=== PATIENT | male | born 1965 | race Caucasian/White ===

== ENCOUNTER 2018-01-24 04:32 | Emergency (ER) | payer SELFPAY ==
[2018-01-24 04:34] VITALS: BP 157/107; PULSE 80; RESP 17; TEMP 36.4; O2SAT 96; BMI 24.3
--- NOTE | 2018-01-24 05:11 | ED.VIS.GEN ---
History of Present Illness Chief Complaint: Chest Pain Informant: Patient Onset: Hours - 12 Context: Gradual Onset Timing: Continuous Quality: tightness Location: substernal w/ radiation toward left shoulder blade. no other radiation. Current Severity: Moderate Maximum Severity: Moderate Worsened by: lying supine. nonpleuritic. Relieved by: sitting up somewhat. Associated Symptoms: none; no n/v, sweats, sob, palpitations, lightheadedness Narrative: Ongoing discomfort radiating into his back. No Fam hx of CAD at young ages in parents or siblings. No cardiac hx or risk factors in pt. States he has been abnormally fatigued for last couple months, so in ruling out multiple possible etiologies, he is going to be scheduled for a routine cardiac stress test, but not until he gets back home to [place]; he and his are here for about another week (or less). Other than recent travel here, he has no risk factors or history of DVT/PE. His discomfort is nonpleuritic and he has had no leg pain or swelling. Patient additionally states that he was suspected of having peptic ulcer disease at one time. This was after taking aspirin for a long time because of a clogged blood vessel in his finger or hand. He no longer takes aspirin, but takes ibuprofen on occasion. Recent Illness/Hospitalization: No - Past Medical History (1) Asthma Status: Chronic Past Medical History - Allergies and Home Meds Allergies/Adverse Reactions: Allergies No Known Allergies Allergy (Verified 01/24/18 04:34) Primary Care Physician: Leatha Doctor,Out of [Primary Care Provider] - Lives: Spouse/ Significant Other Smoking Status: Former smoker Drugs: None Review of Systems All systems negative except as indicated General: Denies: Chills, Fever Cardiovascular: Reports: Chest pain. Denies: Palpitations, Heart racing Respiratory: Denies: Dyspnea, Cough Gastrointestinal: Denies: Abdominal pain, Nausea, Vomiting, Diarrhea, Melena Musculoskeletal: Reports: Back pain. Denies: Neck pain, Swelling, Extremity Pain Physical Exam Vital Signs/Narrative: Vital Signs Temp Pulse Resp BP Pulse Ox 01/24/18 04:34 97.5 F L 80 17 157/107 H 96 Inital Vital Signs reviewed: Yes General: Well nourished, Well developed Head: Normocephalic, Atraumatic Eyes: Perrl, EOMI ENT: Moist mucous membranes, No rhinorrhea Neck: Supple, Nontender Cardiovascular: Regular rate, Regular rhythm, No murmurs Respiratory: No distress, CTA bilaterally, Chest nontender Abdomen: Soft, Nontender, Nondistended, Normal bowel sounds Back: Nontender, Normal Inspection Extremities: Nontender, No edema Skin: Normal color, No rash Neurological: Alert, Oriented x3, Cranial nerves II-XII grossly intact, Normal Strength, Normal Sensation, Normal Gait Psychological: Normal affect Diagnostic/Tx/Re-eval Impressions Chest X-Ray 01/24/18 05:07 IMPRESSION: No focal consolidation. There is basilar atelectasis/scarring present. Right lower lung zone pulmonary nodularity. Recommend CT scan of the chest to further evaluate. Neoplastic process cannot be excluded. Electronically Signed: Don Timbo, at 5:22 EDT Tel , Service support , 01/24/18 05:07 Chest 1 View (Portable) [RAD] Stat Laboratory Results 01/24/18 01/24/18 Range/Units 04:40 04:40 WBC 11.9 H (4.4-11.0) K/mm3 RBC 5.20 (4.6-6.2) M/mm3 Hgb 16.1 (13.0-16.5) g/dl Hct 47.9 (40-54) % MCV 92.1 (80-94) fL MCH 31.0 (27.0-32.0) pg MCHC 33.6 (32-36) g/gl RDW 13.4 (11.6-14.6) % RDW Differential 44.0 H (35.1-43.9) fl Plt Count 256 (150-450) K/mm3 MPV 9.7 (6.2-12.0) fl Immature Gran % (Auto) 0.300 (0.0-0.9) % Neut % (Auto) 74.1 H (47-70) % Lymph % (Auto) 11.0 L (19-41) % Hardeman % (Auto) 11.4 H (0-10) % Eos % (Auto) 2.9 (0-5) % Baso % (Auto) 0.3 (0-1) % Absolute Neuts (auto) 8.8 H (2.0-7.7) X10^3/uL Absolute Lymphs (auto) 1.31 (0.83-4.51) X10^3/ul Total Counted Not Reportable Sodium 142 (136-145) mmol/L Potassium 3.8 (3.5-5.1) mmol/L Chloride 107 (98-107) mmol/L Carbon Dioxide 27.0 (21.0-32.0) mmol/L Anion Gap 8 (5-15) BUN 18 (7-18) mg/dL Creatinine 0.90 (0.70-1.30) mg/dL Estim Creat Clear Calc 102.99 ml/min Est GFR (MDRD) Af Amer 113 (>60) mL/min Est GFR (MDRD) Non-Af 93 (>60) mL/min BUN/Creatinine Ratio 19.9 (10-20) RATIO Glucose 91 (74-106) mg/dL Calcium 8.6 (8.5-10.1) mg/dL Troponin I < 0.015 (<0.045) ng/mL - Rhythm Strip Rhythm Strip: Sinus Rhythm Rate: 70 Ectopy: None - EKG Initial EKG Interpretation: Sinus Rhythm, No Acute Injury Pattern, - - nml axis. nml EKG. Prior: No Prior - Medical Decision Making EKG is normal, and after 12 hours of continuous discomfort, his troponin is negative. This essentially rules out acute coronary syndrome in this setting. Furthermore, and further reassuring, his symptoms are dramatically improved after a GI cocktail and no other medications. My suspicion is that this is either reflux, gastritis, or early peptic ulcer. He has famotidine in his car, but he only uses it as needed, such as before he eats something like pizza. I recommend using this twice a day for at least 2 weeks, following up with his doctor. He is having a routine stress test within the next couple weeks, I do not think he needs to be admitted at this time given the scenario. Of note, there was an abnormal area seen in his right lower lung field on chest x-ray, CT scan was recommended. When I discussed this with the patient, he states he already had a CT scan for that abnormality that was seen by his own doctor on chest x-ray, it was noted to be probable scarring from an old pneumonia that he had about 20 years ago, and was not a mass. He asked to take a CD of the x-ray home so that his doctor could compare it since he has not had an x-ray in a while, that was done. ED Disposition - Plan for ED Patient: Disposition: Home or Assisted Living Chief Complaint: Chest Pain Diagnosis: Chest pain, unspecified Instructions: ED Chest Pain NonCardiac Referrals: [facility] [place] Doctor,Out of [Primary Care Provider] - 1-2 Weeks Additional Instructions: Take famotidine twice daily for at least a week, 2 if able. Does not matter if you have the 20 or 40 mg pills.
[2018-01-24 05:16] LABS: Absolute Lymphocyte Count 1.31 X10^3/ul (0.83-4.51); Absolute Neutrophil Count 8.8 X10^3/uL (2.0-7.7); Basophil# 0.03 X10^3/uL; Basophil% 0.3 % (0-1); Eosinophil# 0.34 X10^3/uL; Eosinophils% 2.9 % (0-5); Hematocrit 47.9 % (40-54); Hemoglobin 16.1 g/dl (13.0-16.5); Lymphocyte # 1.31 X10^3/ul (4.0); Mean Corp Hgb Conc 33.6 g/gl (32-36); Mean Corpuscular Volume 92.1 fL (80-94); Mean Platelet Vol. 9.7 fl (6.2-12.0); Monocyte# 1.35 X10^3/uL; Monocyte% 11.4 % (0-10); Neutrophil # 8.82 X10^3/uL (2.7-7.7); Neutrophil % 74.1 % (47-70); Platelet Count 256 K/mm3 (150-450); RBC Distribution Width CV 13.4 % (11.6-14.6); White Blood Count 11.9 K/mm3 (4.4-11.0)
[2018-01-24] MEDS: Mag Hydrox/Al Hydrox/Simeth 30 ML UDC PO (05:17)
--- NOTE | 2018-01-24 05:19 | ED.RN ---
gi cocktail mixed.
[2018-01-24 05:23] LABS: POSITIVE COUNT NO; POSITIVE DIFFERENTIAL NO; POSITIVE MORPHOLOGY NO
[2018-01-24 05:28] LABS: Anion Gap 8 (5-15); BUN 18 mg/dL (7-18); BUN/Creat Ratio 19.9 RATIO (10-20); Calcium,Total 8.6 mg/dL (8.5-10.1); Chloride 107 mmol/L (98-107); EST Glomerular Filtration Rate 93 mL/min (>60); Est Glom Filt Rate - Afr Amer 113 mL/min (>60); Estimated Creatinine Clearance 102.99 ml/min; Glucose 91 mg/dL (74-106); Potassium 3.8 mmol/L (3.5-5.1); Sodium Level 142 mmol/L (136-145)
[2018-01-24 05:52] VITALS: BP 138/88; PULSE 81; RESP 16; O2SAT 94
[2018-01-24 06:05] VITALS: BP 137/87; PULSE 90; RESP 20; O2SAT 93
== END 2018-01-24 06:06 | disposition home or self-care (01) ==
PROVIDERS: Emergency Provider Emergency Medicine
DX: R07.9 Chest pain, unspecified (principal); J45.909 Unspecified asthma, uncomplicated; Z87.891 Personal history of nicotine dependence
CPT/HCPCS: 71045; 80048; 84484; 85025; 93005; 99285; A4216